=== PATIENT | female | born 1935 | race Two or more races ===

== ENCOUNTER 2017-02-19 14:59 | Inpatient (IN) | payer MEDICARE, OTHER ==
[~2017-02-19] VITALS: Ht 139.7 cm; Wt 64.9 kg
[~2017-02-19 14:59] MED LIST: ATOR40TA PO; Buspirone Hcl PO; CALC500T52 PO; CARB1TAB21 PO; CHOL100044 PO; DILT240C49 PO; ESOM40CA PO; FLUT1DIS3 IH; GABA-532 PO; MEMA1CAP2 PO; METH5TAB6 PO; OLME20TA15 PO; VORT20TA PO
--- NOTE | 2017-02-19 15:11 | NUR ---
LINE STARTED ON R WRIST G 20, BLOOD AND CULTURES DRAWN FROM LINE AND SENT TO LAB
--- NOTE | 2017-02-19 15:20 | NUR ---
JESUS ALBERTO EMT AT BEDSIDE FOR EKG. NSR NOTED WITHOUT ECTOPY
[2017-02-19 15:30] LABS: BASOPHILS # (AUTO) 0.4 /CMM (0.0-0.2); BASOPHILS % (AUTO) 4.3 % (0.0-2.0); EOSINOPHILS # (AUTO) 0.1 /CMM (0.0-0.7); HEMATOCRIT 40 % (33-45); HEMOGLOBIN 13.2 g/dL (11.5-14.8); LYMPHOCYTES # (AUTO) 1.3 /CMM (0.8-4.8); LYMPHOCYTES % (AUTO) 13.7 % (20.0-44.0); MEAN CORPUSCULAR HEMOGLOBIN 27 PG (26.0-33.0); MEAN CORPUSCULAR HGB CONC 33 g/dl (31.0-36.0); MEAN CORPUSCULAR VOLUME 82 fL (82-100); MONOCYTES # (AUTO) 0.6 /CMM (0.1-1.30); MONOCYTES % (AUTO) 5.7 % (2.0-12.0); NEUTROPHILS # (AUTO) 7.3 /CMM (1.8-8.9); NEUTROPHILS % (AUTO) 75.3 % (43.0-81.0); PLATELET COUNT (AUTO) 126 /CMM (150-450); RDW COEFFICIENT OF VARIATION 14.7 (11.5-15.0); RED BLOOD CELL COUNT(AUTO) 4.87 MIL/uL (4.0-5.2); WHITE BLOOD COUNT (AUTO) 9.7 K/uL (4.3-11.0)
[2017-02-19 15:35] LABS: CALCIUM, SERUM 9.3 mg/dL (8.5-10.1); CARBON DIOXIDE 28 mmol/L (21-32); CHLORIDE 103 mmol/L (98-107); CREATININE 1.1 mg/dL (0.6-1.3); GLUCOSE 83 mg/dL (74-106); SODIUM SERUM 137 mmol/L (136-145); UREA NITROGEN, BLOOD 16 mg/dL (7-18)
[2017-02-19 15:36] LABS: INR 0.89 (0.87-1.13); PROTHROMBIN TIME 9.3 SECS (9.5-12.7)
[2017-02-19 15:42] LABS: TROPONIN I < 0.017 ng/mL (0.00-0.056)
--- NOTE | 2017-02-19 15:53 | NUR ---
IN AND OUT CATHETER INSERTED USING STERILE TECHNIQUE. 100 CC YELLOW CLEAR URINE COLLECTED AND SENT TO LAB
[2017-02-19 15:58] LABS: ALANINE AMINOTRANSFERASE 14 U/L (12-78); ALBUMIN 3.1 g/dL (3.4-5.0); ALCOHOL, BLOOD < 3 mg/dL (0-0); ALKALINE PHOSPHATASE 111 U/L (46-116); ASPARTATE AMINOTRANSFERASE 41 U/L (15-37); BILIRUBIN,DIRECT 0.1 mg/dL (0.0-0.2); BILIRUBIN,TOTAL 0.4 mg/dL (0.2-1.0)
[2017-02-19 16:01] LABS: ACETAMINOPHEN 0 ug/ml (10-30); SALICYLATE 1.9 mg/dL (2.8-20.0)
[2017-02-19 16:05] LABS: BILIRUBIN,URINE Negative (NEGATIVE); BLOOD, URINE Negative Ery/uL (NEGATIVE); KETONES,URINE Trace (NEGATIVE); LEUKOCYTE ESTERASE ,URINE Negative (NEGATIVE); NITRITE, URINE Negative (NEGATIVE); PROTEIN,URINE Negative (NEGATIVE); UGLUCOSE Negative (NEGATIVE); UROBILINOGEN,URINE 0.2 EU/dL (0.2)
[2017-02-19 16:06] LABS: APPEARANCE,URINE Hazy (CLEAR); COLOR,URINE Dark Yellow (YELLOW)
[2017-02-19 16:11] LABS: BACTERIA,URINE Moderate /HPF (None Seen); MUCUS,URINE Few /LPF (None Seen); SQUAMOUS EPITHELIAL CELL,UR Few /HPF (None Seen); WBC,URINE 0-3 /HPF (0-3); YEAST,URINE None Seen /HPF (None Seen)
[2017-02-19 16:17] LABS: THYROID STIMULATING HORMONE 2.424 uIU/mL (0.358-3.74)
[2017-02-19] MEDS ORDERED: IV NS 0.9% 1,000 ML BAG IV ONE (16:30)
--- NOTE | 2017-02-19 16:30 | NUR ---
admitting note received report from Cj Whittington. received patient via wheelchair, transferred to bed with moderate assistance. able to stand. a+o x2. breathing even and unlabored on room air 92%, then put NC 2L O2 per Cj Whittington. skin warm and dry. denies dizziness. denies pain. BL hand IV's patent. hung iv fluids NS @ 75ml/hr. VS recorded. unable to do full assessment d/t time constriction. will give report to night nurse to complete. pt. voided one time in diaper- aware of need to void. cleaned, made comfortable. oriented patient to unit/ room. made sure she knows how to use call light, she nodded yes- in reach. will inform night RN of need for admission documentation. charge nurse aware. Addendum: 02/19/17 at 1926 by STEPHANY MAJOR RN wrong time
--- NOTE | 2017-02-19 16:49 | NUR ---
CALLED [facility] REPAGED DR KURTZ.
[2017-02-19] MEDS ORDERED: VANCOMYCIN 1 GM in IV D5W 250 ML IV ONE (17:00)
[2017-02-19] MEDS ORDERED: PIPERACILLIN /TAZOBACTAM 3.375 G in IV D5W 50 ML IV ONE (17:00)
[2017-02-19] MEDS ORDERED: IV NS 0.9% 1,000 ML IV PRN (17:28)
[2017-02-19] MEDS ORDERED: MAGNESIUM HYDROXIDE 30 ML UDC PO PRN ×2 (17:30→18:15)
[2017-02-19] MEDS ORDERED: MAG HYDROX/AL HYDROX/SIMETH 30 ML UDC PO PRN ×2 (17:30→18:15)
[2017-02-19] MEDS ORDERED: HYDROCODONE/APAP 5/325MG 1 EACH TABLET PO PRN ×2 (17:30→18:15)
[2017-02-19] MEDS ORDERED: ONDANSETRON HCL/PF 4 MG/2 ML VIAL IVP PRN ×2 (17:30→18:15)
[2017-02-19] MEDS ORDERED: ACETAMINOPHEN 325 MG TABLET PO PRN ×2 (17:30→18:15)
--- NOTE | 2017-02-19 17:34 | NUR ---
PT AMBULATED TO RESTROOM WITH ASSISTANCE
[2017-02-19] MEDS ORDERED: FESO4TAB PO (17:49)
[2017-02-19] MEDS ORDERED: BUPR-51 PO (17:49)
[2017-02-19] MEDS ORDERED: TEMA15CA PO (17:49)
[2017-02-19] MEDS ORDERED: CITA10TA9 PO (17:49)
[2017-02-19] MEDS ORDERED: LORA0.5T PO (17:49)
[2017-02-19] MEDS ORDERED: MEMA10TA PO (17:49)
[2017-02-19] MEDS ORDERED: PIPERACILLIN /TAZOBACTAM 3.375 G in IV D5W 50 ML IV SCH ×2 (18:00→18:15)
[2017-02-19 18:24] LABS: CREATINE KINASE MB 9.9 ng/mL (0-3.6)
--- NOTE | 2017-02-19 18:30 | NUR ---
admitting note received report from Cj Whittington. received patient via wheelchair, transferred to bed with moderate assistance. able to stand. a+o x2. breathing even and unlabored on room air 92%, then put NC 2L O2 per Cj Whittington. skin warm and dry. denies dizziness. denies pain. BL hand IV's patent. hung iv fluids NS @ 75ml/hr. VS recorded. unable to do full assessment d/t time constriction. will give report to night nurse to complete. pt. voided one time in diaper- aware of need to void. cleaned, made comfortable. oriented patient to unit/ room. made sure she knows how to use call light, she nodded yes- in reach. will inform night RN of need for admission documentation. charge nurse aware.
[2017-02-19 18:55] VITALS: BP 163/73
--- NOTE | 2017-02-19 19:45 | NUR ---
GAUGE INSPECTOR OPENING NOTE PT RECEIVED IN NO ACUTE DISTRESS. ON TELE WITH SR 59. PT IS A/O X3 WITH PRIMARILY CITIZEN OF [place] AND [place] SPEAKING BUT ABLE TO SPEAK A LITTLE BIT OF NIGERIAN, BUT THERE IS A COWORKER THAT IS ABLE TO TRANSLATE. ON 2L NC TOLERATING WELL WITH [place] BREATHING PATTERN. PT HAS RIGHT HAND 20G AND LEFT HAND 18G THAT ARE CLEAN DRY AND INTACT RUNNING NS @100CC/HR. BP IS HIGH AROUND 170-180'S SYSTOLIC AND WILL GET ORDER FOR BP MEDS. COMFORT AND SAFETY MEASURES TO BE ENSURED DURING THE SHIFT. WILL CONTINUE TO MONITOR FOR ANY CHANGES DURING THE SHIFT.
[2017-02-19 20:00] VITALS: BP 174/72
[2017-02-19] MEDS ORDERED: TEMAZEPAM 15 MG CAPSULE PO PRN (20:00)
[2017-02-19] MEDS: ACYCLOVIR 200 MG CAPSULE PO SCH (20:43)
[2017-02-19] MEDS: CLONIDINE HCL 0.1 MG TABLET PO PRN (20:43)
[2017-02-19] MEDS: ATORVASTATIN 40 MG TABLET PO SCH (21:55)
[2017-02-19] MEDS: IV NS 0.9% 1,000 ML IV PRN (22:05)
[2017-02-19] MEDS: PIPERACILLIN /TAZOBACTAM 2.25 G in IV D5W 50 ML IV SCH (23:39)
[2017-02-20] VITALS (8 sets, daily range): BP systolic 117–158; BP diastolic 49–76
[2017-02-20] MEDS: PIPERACILLIN /TAZOBACTAM 2.25 G in IV D5W 50 ML IV SCH ×2 (05:14→12:12)
[2017-02-20 06:52] LABS: CALCIUM, SERUM 8.3 mg/dL (8.5-10.1); CARBON DIOXIDE 26 mmol/L (21-32); CHLORIDE 110 mmol/L (98-107); CREATININE 0.8 mg/dL (0.6-1.3); GLUCOSE 73 mg/dL (74-106); MAGNESIUM 1.7 mg/dL (1.8-2.4); POTASSIUM 3.8 mmol/L (3.5-5.1); SODIUM SERUM 144 mmol/L (136-145); UREA NITROGEN, BLOOD 11 mg/dL (7-18)
[2017-02-20 06:54] LABS: TROPONIN I < 0.017 ng/mL (0.00-0.056)
[2017-02-20 06:56] LABS: BASOPHILS % (AUTO) 0.5 % (0.0-2.0); EOSINOPHILS # (AUTO) 0.1 /CMM (0.0-0.7); EOSINOPHILS % (AUTO) 1.7 % (0.0-6.0); HEMATOCRIT 36 % (33-45); HEMOGLOBIN 11.9 g/dL (11.5-14.8); LYMPHOCYTES # (AUTO) 1.7 /CMM (0.8-4.8); LYMPHOCYTES % (AUTO) 22.8 % (20.0-44.0); MEAN CORPUSCULAR HEMOGLOBIN 28 PG (26.0-33.0); MEAN CORPUSCULAR HGB CONC 33 g/dl (31.0-36.0); MEAN CORPUSCULAR VOLUME 83 fL (82-100); MONOCYTES # (AUTO) 0.3 /CMM (0.1-1.30); MONOCYTES % (AUTO) 4.6 % (2.0-12.0); NEUTROPHILS # (AUTO) 5.1 /CMM (1.8-8.9); NEUTROPHILS % (AUTO) 70.4 % (43.0-81.0); PLATELET COUNT (AUTO) 114 /CMM (150-450); RED BLOOD CELL COUNT(AUTO) 4.31 MIL/uL (4.0-5.2); WHITE BLOOD COUNT (AUTO) 7.3 K/uL (4.3-11.0)
--- NOTE | 2017-02-20 07:30 | NUR ---
SOLAR RESOURCE ASSESSOR OPENING RECEIVED PATIENT SOMALI AND PORTUGUESE SPEAKING. PATIENT A/OX2-3 AT THIS TIME. PATIENT DENIES SOB, DIFFICULTY BREATHING AND NO PAIN. PATIENT ROOM AIR RANGES FROM 90-94%. PLACED PATIENT ON 2LPM NC FOR COMFORT UNTIL SHE IS MORE AWAKE. PATIENT NEEDS IN REACH, BED LOWERED AND LOCKED, RAILS UPX3 FOR SAFETY AND WILL ROUND Q2H OR LESS PER NEEDS. BED ALARM ON PATIENT HAS A HX OF FALLS. PENDING PT МАРИНА. TELE NSR 70'S
[2017-02-20 07:44] LABS: CREATINE KINASE MB 5.3 ng/mL (0-3.6); CREATINE KINASE, TOTAL 3092 U/L (26-192)
[2017-02-20] MEDS: FLUTICASONE/VILANTEROL 1 EACH BLST.W.DEV IH SCH (09:32)
[2017-02-20] MEDS: BUPROPION XL 150 MG TAB.ER.24 PO SCH (09:33)
[2017-02-20] MEDS: LOSARTAN POTASSIUM 25 MG TABLET PO SCH (09:33)
[2017-02-20] MEDS: CITALOPRAM HYDROBROMIDE 10 MG TABLET PO SCH (09:33)
[2017-02-20] MEDS: CARBIDOPA/LEVODOPA 25/100 MG 1 UDTAB PO SCH ×2 (09:33→17:08)
[2017-02-20] MEDS: GABAPENTIN 100 MG CAPSULE PO SCH ×3 (09:33→17:08)
[2017-02-20] MEDS: MEMANTINE HCL 5 MG TABLET PO SCH (09:33)
[2017-02-20] MEDS: METHIMAZOLE (5MG) 5 MG TABLET PO SCH (09:33)
[2017-02-20] MEDS: ACYCLOVIR 200 MG CAPSULE PO SCH ×3 (09:33→17:08)
[2017-02-20] MEDS: IV NS 0.9% 1,000 ML IV PRN (09:39)
--- NOTE | 2017-02-20 09:45 | NUR ---
BRIDGE DESIGN ENGINEER NOTES PATIENT TOLERATED PHYSICAL THERAPY EVAL. MOD ASSIST WITH WALKER. ROOM AIR AT THIS TIME 96%. PATIENT SITTING UP IN CHAIR FOR COMFORT
--- NOTE | 2017-02-20 13:28 | NUR ---
ms rn notes educational resource coordinator bradley ceron at bedside
[2017-02-20] MEDS: Magnesium 1GM/D5W 100ML PREMIX 100 ML IV SCH ×2 (13:33→15:00)
--- NOTE | 2017-02-20 13:38 | NUR ---
MS RN NOTES NOTIFIED ChesterSage EDGE PATIENT IS WITHOUT RASH. HE WILL F.U
--- NOTE | 2017-02-20 18:02 | NUR ---
MS RN NOTES ENGINEERED WOOD DESIGNER BENJAMÍN AT BEDSIDE. EVAL COMPLETED. PER ENGINEERED WOOD DESIGNER DISCONTINUE ISOLATION PATIENT DOES NOT HAVE SHINGLES
[2017-02-20] MEDS ORDERED: CEFTRIAXONE 1 G in IV D5W 50 ML IV SCH (18:30)
--- NOTE | 2017-02-20 19:30 | NUR ---
RN OPENING NOTES RECEIVED REPORT FROM DAYSHIFT RN. FOUND Pt AWAKE, RESTING IN BED. NO S/S OF ACUTE DISTRESS OR SOB NOTED. Pt IS A/OX4, VERBAL, ABLE TO MAKE NEEDS KNOWN, MAINLY SPANISH SPEAKING BUT CAN UNDERSTAND POLISH FINE. Pt USES BSC WITH ASSIST. IV ACCESS ON LHAND #18G, NS @100ML/HR. SAFETY MEASURES IN PLACE. BED ALARM ON. BED LOW, LOCKED, HOB ELEVATED, SIDE RAILS UP, CALL LIGHT AND BEDSIDE TABLE WITHIN REACH. WILL CONTINUE TO MONITOR Pt THROUGHOUT THE NIGHT FOR SAFETY.
[2017-02-20] MEDS: CEFTRIAXONE 1 G in IV D5W 50 ML IV SCH (21:13)
[2017-02-20] MEDS: ATORVASTATIN 40 MG TABLET PO SCH (21:14)
--- NOTE | 2017-02-21 02:30 | NUR ---
RN NOTES Pt's IV ON LHAND IS LEAKING. STOPPED IVF. Pt REFUSED NEW IV SITE AT THIS TIME. REQUESTED IT TO BE DONE LATER SO SHE CAN GET SOME SLEEP FIRST. ASKED Pt IF I CAN COME BACK BETWEEN 0530 -0600, AND Pt AGREED. SAFETY MEASURES IN PLACE. BED ALARM ON AND CALL LIGHT WITHIN REACH.
[2017-02-21 04:00] VITALS: BP 179/71
[2017-02-21] MEDS: CLONIDINE HCL 0.1 MG TABLET PO PRN (05:01)
--- NOTE | 2017-02-21 05:30 | NUR ---
RN NOTES STARTED NEW IV SITE ON LWRIST #24G.
--- NOTE | 2017-02-21 06:35 | NUR ---
RN CLOSING NOTES NO SIGNIFICANT CHANGES NOTED DURING THE SHIFT. Pt REMAINS IN STABLE CONDITION. NO S/S OF ACUTE DISTRESS OR SOB NOTED. ALL NEEDS MET AND ATTENDED TO SAFETY MEASURES IN PLACE. WILL ENDORSE TO DAYSHIFT RN FOR Pt's TANYA.
[2017-02-21 07:19] LABS: BASOPHILS # (AUTO) 0.1 /CMM (0.0-0.2); BASOPHILS % (AUTO) 0.9 % (0.0-2.0); EOSINOPHILS # (AUTO) 0.1 /CMM (0.0-0.7); HEMATOCRIT 37 % (33-45); HEMOGLOBIN 12.4 g/dL (11.5-14.8); LYMPHOCYTES # (AUTO) 1.5 /CMM (0.8-4.8); MEAN CORPUSCULAR HEMOGLOBIN 28 PG (26.0-33.0); MEAN CORPUSCULAR HGB CONC 33 g/dl (31.0-36.0); MEAN CORPUSCULAR VOLUME 83 fL (82-100); MONOCYTES # (AUTO) 0.5 /CMM (0.1-1.30); MONOCYTES % (AUTO) 7.6 % (2.0-12.0); NEUTROPHILS # (AUTO) 4.2 /CMM (1.8-8.9); NEUTROPHILS % (AUTO) 65.5 % (43.0-81.0); PLATELET COUNT (AUTO) 119 /CMM (150-450); RED BLOOD CELL COUNT(AUTO) 4.52 MIL/uL (4.0-5.2); WHITE BLOOD COUNT (AUTO) 6.4 K/uL (4.3-11.0)
--- NOTE | 2017-02-21 07:30 | NUR ---
MS RN OPENING RECEIVED PATIENT AU[place]IAN AND [place] SPEAKING. PATIENT A/OX3. PATIENT DENIES SOB, DIFFICULTY BREATHING AND NO PAIN. ROOM AIR STABLE AT THIS TIME. PATIENT NEEDS IN REACH, BED LOWERED AND LOCKED, RAILS UPX3 FOR SAFETY AND WILL ROUND Q2H OR LESS PER NEEDS. BED ALARM ON PATIENT HAS A HX OF FALLS. PATIENT IS GETTING OUT OF BED WITHOUT ASSISTANCE DESPITE EDUCATION ON FALL RISKS. RECOVERY COORDINATOR AT BEDSIDE FOR SAFETY
[2017-02-21 07:35] LABS: CALCIUM, SERUM 8.4 mg/dL (8.5-10.1); CARBON DIOXIDE 29 mmol/L (21-32); CHLORIDE 106 mmol/L (98-107); CREATININE 0.9 mg/dL (0.6-1.3); GLUCOSE 92 mg/dL (74-106); MAGNESIUM 2.1 mg/dL (1.8-2.4); POTASSIUM 3.6 mmol/L (3.5-5.1); SODIUM SERUM 142 mmol/L (136-145); UREA NITROGEN, BLOOD 6 mg/dL (7-18)
[2017-02-21 08:00] VITALS: BP 135/45
[2017-02-21] MEDS: CARBIDOPA/LEVODOPA 25/100 MG 1 UDTAB PO SCH ×2 (08:38→16:29)
[2017-02-21] MEDS: METHIMAZOLE (5MG) 5 MG TABLET PO SCH (08:38)
[2017-02-21] MEDS: FLUTICASONE/VILANTEROL 1 EACH BLST.W.DEV IH SCH (08:38)
[2017-02-21] MEDS: GABAPENTIN 100 MG CAPSULE PO SCH ×3 (08:38→16:29)
[2017-02-21] MEDS: CITALOPRAM HYDROBROMIDE 10 MG TABLET PO SCH (08:38)
[2017-02-21] MEDS: MEMANTINE HCL 5 MG TABLET PO SCH (08:38)
[2017-02-21] MEDS: BUPROPION XL 150 MG TAB.ER.24 PO SCH (08:38)
[2017-02-21] MEDS: LOSARTAN POTASSIUM 25 MG TABLET PO SCH (08:38)
[2017-02-21] MEDS: IV NS 0.9% 1,000 ML IV PRN (08:43)
[2017-02-21 10:23] LABS: CREATINE KINASE MB 1.2 ng/mL (0-3.6)
--- NOTE | 2017-02-21 11:03 | NUR ---
MS RN NOTES CARE ENDORSED TO SREE BE FOR TANYA
--- NOTE | 2017-02-21 11:04 | NUR ---
RN NOTES: PATIENT RESTING IN BED. PATIENT ALERT ORIENTED X3, UNDERSTANDS GABONESE. NONLABORED BREATHING NOTED ON ROOM AIR. PATIENT DENIES PAIN. IV SITE PATENT AND INTACT. BED IN LOWEST LOCKED POSITION. CALL LIGHT WITHIN REACH. SITTER AT BEDSIDE. WILL CONTINUE TO MONITOR
[2017-02-21 16:00] VITALS: BP 150/48
--- NOTE | 2017-02-21 19:30 | NUR ---
RN/MS NOTES: RECEIVED PT. IN BED A/O X 2 W/ PERIODS OF CONFUSION. KITTITIAN SPEAKING BUT UNDERSTANDS MACEDONIAN W/ MIN. WORDS IN MACEDONIAN. HL ON LWRIST #24 W/ NO S/S OF INFECTION/INFILTRATION NOTED. HAS A BSC W/ ASSISTANCE. NO S/S OF RESPIRATORY DISTRESS NOTED. CALL LIGHT W/ REACH. WILL CONTINUE TO MONITOR.
--- NOTE | 2017-02-21 19:54 | NUR ---
RN CLOSING NOTES: PATIENT RESTING IN BED. PATIENT ALERT ORIENTED X3, UNDERSTANDS INDONESIAN. NONLABORED BREATHING NOTED ON ROOM AIR. PATIENT DENIES PAIN. IV SITE PATENT AND INTACT. BED IN LOWEST LOCKED POSITION. BED ALARM ON. CALL LIGHT WITHIN REACH. SITTER AT BEDSIDE. ENDORSED TO NEXT SHIFT
[2017-02-21 20:00] VITALS: BP 145/60
[2017-02-21 20:20] VITALS: BP 169/78
--- NOTE | 2017-02-21 20:20 | NUR ---
RN/MS NOTES: REPORT GIVEN TO NURSE EMMY. PT. LEFT FLOOR VIA W/C W/ ALL HER MEDS AND BELONGINGS IN STABLE CONDITION.
--- NOTE | 2017-02-21 20:21 | NUR ---
MS WEBFED OFFSET PRESS OPERATOR NOTES: PATIENT TRANSFERRED FROM MS 1ST FLOOR TO MS 2ND FLOOR VIA WHEELCHAIR. PATIENT IS AOX3, ON ROOM AIR, BREATHING EVEN AND UNLABORED. BREATH SOUNDS CLEAR TO AUSCULTATION. PIV OVER LEFT WRIST G24 INTACT AND PATENT TO FLUSH. PATIENT HAS INTACT DRESSING OVER LEFT UPPER ARM. APPEARS CALM AND IN NO DISTRESS, COOPERATIVE, ONLY COMPLAINING OF 4/10 PAIN OVER ERON UPPER ARMS WHENEVER SHE MOVES THEM. VS TAKEN, ORIENTED TO UNIT. BELONGINGS CHECKED. BED IN LOWEST AND LOCKED POSITION, SIDERAILS UP X3, BED ALARMS ON. ON FALL PRECAUTIONS. WILL CONT TO MONITOR CLOSELY.
[2017-02-21] MEDS: CEFTRIAXONE 1 G in IV D5W 50 ML IV SCH (20:47)
[2017-02-21] MEDS: ATORVASTATIN 40 MG TABLET PO SCH (21:00)
[2017-02-22] MEDS: IV NS 0.9% 1,000 ML IV PRN (01:17)
[2017-02-22] MEDS: CLONIDINE HCL 0.1 MG TABLET PO PRN (02:09)
--- NOTE | 2017-02-22 02:16 | NUR ---
RN NOTES: PATIENT'S BP RECHECKED, HIGHER AT 180/87. HR: 71. ADMINISTERED CLONIDINE 0.1 MG PO PRN. PLACED O2 AT 2 LPM VIA NC. WILL CONT TO MONITOR.
[2017-02-22] MEDS ORDERED: Z GUARD REMEDY 2 OZ OINT TP PRN (03:30)
[2017-02-22 05:00] VITALS: BP 146/84
[2017-02-22 06:27] LABS: BASOPHILS % (AUTO) 0.3 % (0.0-2.0); EOSINOPHILS # (AUTO) 0.1 /CMM (0.0-0.7); EOSINOPHILS % (AUTO) 1.8 % (0.0-6.0); HEMATOCRIT 36 % (33-45); HEMOGLOBIN 12.1 g/dL (11.5-14.8); LYMPHOCYTES # (AUTO) 1.5 /CMM (0.8-4.8); LYMPHOCYTES % (AUTO) 25.7 % (20.0-44.0); MEAN CORPUSCULAR HEMOGLOBIN 28 PG (26.0-33.0); MEAN CORPUSCULAR HGB CONC 34 g/dl (31.0-36.0); MEAN CORPUSCULAR VOLUME 83 fL (82-100); MONOCYTES # (AUTO) 0.4 /CMM (0.1-1.30); NEUTROPHILS % (AUTO) 66.2 % (43.0-81.0); PLATELET COUNT (AUTO) 128 /CMM (150-450); RDW COEFFICIENT OF VARIATION 15.6 (11.5-15.0); RED BLOOD CELL COUNT(AUTO) 4.36 MIL/uL (4.0-5.2)
--- NOTE | 2017-02-22 06:40 | NUR ---
MS RN CLOSING NOTES: PATIENT IN BED, AOX3, ON O2 AT 2 LPM VIA NC, BREATHING EVEN AND UNLABORED. APPEARS CALM AND IN NO DISTRESS. PIV OVER LEFT WRIST G24 INTACT AND PATENT, INFUSING WELL WITH NS RUNNING AT 100 ML/HR. DUE MEDS GIVEN. PROVIDED FOR COMFORT AND SAFETY. BED IN LOWEST AND LOCKED POSITION, SIDERAILS UPX3. BED ALARMS ON. WILL ENDORSE TO AM RN FOR TANYA.
[2017-02-22 06:44] LABS: CALCIUM, SERUM 8.5 mg/dL (8.5-10.1); CARBON DIOXIDE 28 mmol/L (21-32); CHLORIDE 106 mmol/L (98-107); CREATININE 0.9 mg/dL (0.6-1.3); GLUCOSE 108 mg/dL (74-106); POTASSIUM 3.8 mmol/L (3.5-5.1); SODIUM SERUM 141 mmol/L (136-145); UREA NITROGEN, BLOOD 7 mg/dL (7-18)
[2017-02-22 06:55] LABS: CREATINE KINASE, TOTAL 645 U/L (26-192)
--- NOTE | 2017-02-22 07:30 | NUR ---
MS RN AM NOTES: PATIENT IN BED, PATIENT IS AOX3, CALM AND COOPERATIVE, ON ROOM AIR, BREATHING EVEN AND UNLABORED. BREATH SOUNDS CLEAR TO AUSCULTATION. COMPLAINING OF 4/10 PAIN OVER ERON UPPER ARMS WHENEVER SHE MOVES THEM. PIV OVER LEFT WRIST G24 INTACT AND PATENT TO FLUSH. PATIENT HAS INTACT DRESSING OVER LEFT UPPER ARM. SEE NURSING FLOWSHEET FOR SKIN ASSESSMENT. CARDIAC DEIT. AMBULATE WITH ASSIST. BED IN LOWEST AND LOCKED POSITION, SIDERAILS UP X3, BED ALARMS ON. ON FALL PRECAUTIONS. CALL LIGHT WITHIN REACH. WILL CONT TO MONITOR CLOSELY.
[2017-02-22 08:00] VITALS: BP 149/87
[2017-02-22] MEDS: GABAPENTIN 100 MG CAPSULE PO SCH ×3 (09:17→16:11)
[2017-02-22] MEDS: BUPROPION XL 150 MG TAB.ER.24 PO SCH (09:17)
[2017-02-22] MEDS: CITALOPRAM HYDROBROMIDE 10 MG TABLET PO SCH (09:17)
[2017-02-22] MEDS: FLUTICASONE/VILANTEROL 1 EACH BLST.W.DEV IH SCH (09:17)
[2017-02-22] MEDS: CARBIDOPA/LEVODOPA 25/100 MG 1 UDTAB PO SCH ×2 (09:17→16:11)
[2017-02-22] MEDS: MEMANTINE HCL 5 MG TABLET PO SCH (09:17)
[2017-02-22] MEDS: METHIMAZOLE (5MG) 5 MG TABLET PO SCH (09:17)
[2017-02-22] MEDS: VALSARTAN 80 MG TABLET PO SCH (09:18)
[2017-02-22 09:27] LABS: CREATINE KINASE MB 0.5 ng/mL (0-3.6)
--- NOTE | 2017-02-22 09:30 | NUR ---
MS RN NOTES SEEN BY DR. CABRERA EARLIER. ORDERED TO DC IVF. DUE MEDS GIVEN.
--- NOTE | 2017-02-22 10:30 | NUR ---
MS RN NOTES FOLLOWED UP ULTRASOUND RE CAROTID DUPLEX. MESSAGE LEFT.
--- NOTE | 2017-02-22 11:20 | NUR ---
MS RN NOTES DR. FRANKLIN PAGED RE PSYCH CONSULT.
--- NOTE | 2017-02-22 13:36 | NUR ---
MS RN NOTES 2ND CALL TO ULTRASOUND RE CAROTID DUPLEX IMAGING. LEFT MESSAGE.
--- NOTE | 2017-02-22 14:58 | NUR ---
MS RN NOTES PT SEEN BY DR. FRANKLIN. EEG ONGOING. STILL WAITING FOR CAROTID DUPLEX US. 3RD CALL MADE. WILL INFORM KRISTIAN LAMBERT MNGR, ONCE DC ORDER IN.
--- NOTE | 2017-02-22 15:25 | NUR ---
MS RN NOTES CAROTID DUPLEX US DONE.
[2017-02-22 16:00] VITALS: BP 160/74
--- NOTE | 2017-02-22 16:00 | NUR ---
MS RN NOTES NOTIFIED BJ EDGE ABOUT CAROTID DUPLEX US RESULT.
--- NOTE | 2017-02-22 17:25 | NUR ---
MS RN NOTES PER KRISTIAN CASE MANAGEMENT, HE SPOKE WITH BJ EDGE, AND THAT PATIENT WILL BE DISCHARGED SARAH.
[2017-02-22 18:00] VITALS: BP 160/74
--- NOTE | 2017-02-22 18:34 | NUR ---
MS RN CLOSING NOTES: PATIENT IN BED, RESTING, PATIENT IS AOX3, CALM AND COOPERATIVE, ON ROOM AIR, BREATHING EVEN AND UNLABORED. DENIES PAIN AT THIS TIME, PIV OVER LEFT WRIST G24 FLUSHES WELL, SITE CLEAR. PATIENT HAS INTACT DRESSING OVER LEFT UPPER ARM. CARDIAC DIET. AMBULATE WITH ASSIST. BED IN LOWEST AND LOCKED POSITION, SIDERAILS UP X3, BED ALARMS ON. ON FALL PRECAUTIONS. CALL LIGHT WITHIN REACH. ALL NEEDS MET. WILL ENDORSE TO NEXT SHIFT FOR TANYA.
[2017-02-22 20:00] VITALS: BP 157/77
[2017-02-22] MEDS: ATORVASTATIN 40 MG TABLET PO SCH (22:01)
--- NOTE | 2017-02-23 06:17 | NUR ---
MS RN NOTES AWAKE & RESPONSIVE. NOT IN ANY DISTRESS. NO SOB NOTED. DENIES ANY PAIN OR DISCOMFORT AT THIS TIME. WITH IV-HL PATENT & INTACT. MONITORED ACCORDINGLY. CALL LIGHT WITHIN REACH. BED IN LOWEST POSITION. SR UP X 3 WITH BED ALARM ON FOR SAFETY. WILL ENDORSE TO NEXT SHIFT.
[2017-02-23 07:06] LABS: BASOPHILS % (AUTO) 0.5 % (0.0-2.0); EOSINOPHILS # (AUTO) 0.1 /CMM (0.0-0.7); EOSINOPHILS % (AUTO) 1.8 % (0.0-6.0); HEMATOCRIT 38 % (33-45); HEMOGLOBIN 12.7 g/dL (11.5-14.8); LYMPHOCYTES # (AUTO) 1.5 /CMM (0.8-4.8); LYMPHOCYTES % (AUTO) 22.5 % (20.0-44.0); MEAN CORPUSCULAR HEMOGLOBIN 28 PG (26.0-33.0); MEAN CORPUSCULAR HGB CONC 34 g/dl (31.0-36.0); MEAN CORPUSCULAR VOLUME 83 fL (82-100); MONOCYTES # (AUTO) 0.4 /CMM (0.1-1.30); MONOCYTES % (AUTO) 6.2 % (2.0-12.0); NEUTROPHILS # (AUTO) 4.5 /CMM (1.8-8.9); PLATELET COUNT (AUTO) 136 /CMM (150-450); RDW COEFFICIENT OF VARIATION 15.7 (11.5-15.0); RED BLOOD CELL COUNT(AUTO) 4.56 MIL/uL (4.0-5.2); WHITE BLOOD COUNT (AUTO) 6.5 K/uL (4.3-11.0)
[2017-02-23 07:10] LABS: CARBON DIOXIDE 29 mmol/L (21-32); CHLORIDE 108 mmol/L (98-107); CREATININE 0.9 mg/dL (0.6-1.3); GLUCOSE 97 mg/dL (74-106); POTASSIUM 3.8 mmol/L (3.5-5.1); SODIUM SERUM 145 mmol/L (136-145); UREA NITROGEN, BLOOD 6 mg/dL (7-18)
--- NOTE | 2017-02-23 07:20 | NUR ---
MS RN OPENING NOTES RECEIVED PT FROM NIGHTSHIFT NURSE IN STABLE CONDITION. PT IS A/O X2-3. NO SOB OR SIGNS OF DISTRESS NOTED. BREATHING IS EVEN AND UNLABORED. PT DENIES ANY PAIN AT THIS TIME. PERIPHERAL IV NOTED ON LEFT WRIST 24G. IV IS PATENT AND INTACT. NO REDNESS OR SIGNS OF INFILTRATION NOTED. BED IN LOW LOCKED POSITION, SIDE RAILS UP X3, CALL LIGHT WITHIN REACH. WILL CONTINUE TO MONITOR
[2017-02-23 08:18] VITALS: BP 150/61
[2017-02-23] MEDS: GABAPENTIN 100 MG CAPSULE PO SCH (08:35)
[2017-02-23] MEDS: VALSARTAN 80 MG TABLET PO SCH (08:36)
[2017-02-23] MEDS: METHIMAZOLE (5MG) 5 MG TABLET PO SCH (08:37)
[2017-02-23] MEDS: CARBIDOPA/LEVODOPA 25/100 MG 1 UDTAB PO SCH (08:37)
[2017-02-23] MEDS: MEMANTINE HCL 5 MG TABLET PO SCH (08:37)
[2017-02-23] MEDS: FLUTICASONE/VILANTEROL 1 EACH BLST.W.DEV IH SCH (08:38)
[2017-02-23 08:50] VITALS: BP 150/69
[2017-02-23] MEDS ORDERED: CITALOPRAM HYDROBROMIDE 10 MG TABLET PO SCH (09:00)
[2017-02-23] MEDS ORDERED: AMLODIPINE BESYLATE 2.5 MG TABLET PO SCH (09:00)
--- NOTE | 2017-02-23 09:22 | NUR ---
WOUND CARE CONSULT: PT PRESENTS AMBULATORY (WITH ASSISTANCE) AND CONTINENT. PT HAS MULTIPLE BRUISES AND DRY ABRASIONS PRESENT ON ADMISSION. NO DRAINAGE NOTED FROM LOWER LEG DRY ABRASIONS. LEFT HIP AND LEFT ARM BRUISING NOTED. ALL SKIN PROTECTION MEASURES IN PLACE. DISCUSSED WITH NURSING STAFF. WILL SEE PRN. CURRENT MARLEE SCORE IS 19.
[2017-02-23] MEDS ORDERED: VALS80TA2 PO (10:05)
[2017-02-23] MEDS ORDERED: AMLO2.5T PO (10:05)
[2017-02-23] MEDS ORDERED: CITA10TA17 PO (10:05)
--- NOTE | 2017-02-23 12:30 | NUR ---
MS BALBUENAENGINEERING TECH NOTES PT WAS DISCHARGED FROM THE UNIT IN STABLE CONDITION. ALL NEEDS WERE MET DURING SHIFT AND ORDERS CARRIED OUT ACCORDINGLY. ALL DISCHARGE INSTRUCTIONS THOROUGHLY DISCUSSED WITH PT. PT VERBALIZED FULL UNDERSTANDING OF DISCHARGE INSTRUCTIONS AND FOLLOW UP APPOINTMENTS. ALL DISCHARGE PAPERWORK WERE SIGNED BY PT. PRESCRIPTION GIVEN TO PT ALONG WITH FOLLOW UP APPOINTMENT REMINDER FORM. SHE LEFT VIA AMBULANCE TRANSPORT REQUESTED BY HER DAUGHTER ALLEGRA. PER ALLEGRA SHE WILL MEET THE AMBULANCE STAFF AT THE PT'S HOME ONCE THEY ARRIVE. ALL BELONGINGS SENT HOME WITH PT Addendum: 02/23/17 at 1709 by ORTIZ MOREJON RN PT REFUSED DISCHARGE PHOTOS SHE STATED THAT THEY WERE TAKEN YESTERDAY AND SHE JUST WANTS TO LEAVE
== END 2017-02-23 12:15 | disposition home health service (06) | DRG 871 ==
LOC: ER 15:01 → TELE1 18:17 → MEDSG1 02-20 12:58 → MEDSG2 02-21 20:23 → MED 02-22 17:22
PROVIDERS: ADMIT Nurse Practitioner Acute Care; ATTEND Nurse Practitioner Acute Care
DX: A41.9 Sepsis, unspecified organism (principal); J18.9 Pneumonia, unspecified organism; J90 Pleural effusion, not elsewhere classified; E87.2 Acidosis; E44.0 Moderate protein-calorie malnutrition; M62.82 Rhabdomyolysis; G20 Parkinson's disease; E83.42 Hypomagnesemia; N39.0 Urinary tract infection, site not specified; F02.80 Dementia in other diseases classified elsewhere, unspecified severity, without behavioral disturbance, psychotic disturbance, mood disturbance, and anxiety; R55 Syncope and collapse; E05.90 Thyrotoxicosis, unspecified without thyrotoxic crisis or storm; E78.5 Hyperlipidemia, unspecified; I70.0 Atherosclerosis of aorta; Z90.49 Acquired absence of other specified parts of digestive tract; Z81.8 Family history of other mental and behavioral disorders; Z79.899 Other long term (current) drug therapy; K21.9 Gastro-esophageal reflux disease without esophagitis; I10 Essential (primary) hypertension; J45.909 Unspecified asthma, uncomplicated; F32.9 Major depressive disorder, single episode, unspecified
CPT/HCPCS: 36415; 70450-TC; 71010-TC; 72125-TC; 80048-TC; 80076-TC; 80305; 81000-TC; 82550-TC; 82553-TC; 83605-TC; 83735-TC; 84100-TC; 84443-TC; 84484-TC; 85025-TC; 85730-TC; 87040-TC; 87081-TC; 87086-TC; 93307-TC; 93880-TC; 95819-TC; 97110-TC; 97116-TC; 97530-TC; A4606; A6253; G0480; J0696; J2543; J3370; J3475; J7030; J7060; Z7610